=== PATIENT | female | born 1950 | race Caucasian/White ===

== ENCOUNTER 2016-04-28 10:07 | Emergency (ER) | payer MEDICARE, MEDICAID ==
[~2016-04-28] VITALS: Ht 157.5 cm; Wt 75.5 kg
[~2016-04-28 10:07] MED LIST: DIPH177. TP
[2016-04-28 10:14] VITALS: Ht 157.5 cm; Wt 75.5 kg
[2016-04-28] MEDS ORDERED: ONDANSETRON (ODT) 4 MG TAB ODT STA (11:19)
--- NOTE | 2016-04-28 11:25 | ERD ---
ER Documentation Chief Complaint Date/Time DATE: 04/28/16 TIME: 11:21 Chief Complaint fell in shower l knee pain HPI This patient is a 65-year-old female with no significant medical history presenting to the emergency department for left knee and left leg pain which began approximately 1 week ago when she twisted her knee in the shower. Currently she states her pain is a 7 out of 10 on the pain scale and it is aching in nature. The patient did not have any fall or other traumatic events. The patient has taken NSAIDs at home with mild relief of her pain. The patient denies any fevers, chills, nausea, vomiting, diarrhea or other symptoms at this time. ROS All systems reviewed and are negative except as per history of present illness. Medications Home Meds Active Scripts Naproxen* (Naprosyn*) 500 Mg Tablet, 500 MG PO BID Y for PAIN AND/OR INFLAMMATION, #30 TAB Prov:TAD MAGALLON PA-C 04/28/16 Hydrocodone/Acetaminophen ([place] 5-325 Tablet) 1 Each Tablet, 1 EACH PO Q8, #10 TAB Prov:TAD MAGALLON PA-C 04/28/16 Diphenhydramin/Benzethon/Zinc (Calagel Gel) 177.44 Ml Gel..ml., 1 APPLIC TP QID Y for ITCHING, #1 Prov:PAUL TAVERA NP 10/23/15 Allergies Allergies: Coded Allergies: No Known Allergy (Unverified , 10/23/15) PMhx/Soc History of Surgery: Yes (REMOVAL OF BRAIN TUMOR; HYSTERRECTOMY; JAW SURGERY) Anesthesia Reaction: No Hx Neurological Disorder: No Hx Respiratory Disorders: No Hx Cardiac Disorders: No Hx Psychiatric Problems: No Hx Miscellaneous Medical Probl: Yes (ECZEMA) Hx Alcohol Use: No Hx Substance Use: No Hx Tobacco Use: No FmHx Family History: coronary disease, diabetes Physical Exam Vitals Vital Signs Date Time Temp Pulse Resp B/P Pulse Ox O2 Delivery O2 Flow Rate FiO2 04/28/16 10:14 97.9 74 18 133/74 100 Physical Exam INITIAL VITAL SIGNS: Reviewed by me. GENERAL: Alert and interactive. No acute distress. HEAD: Head is normocephalic and atraumatic. EYES: EOMI. No scleral icterus. No conjunctival injection. ENT: Moist mucosa. NECK: Supple. Full range of motion. RESPIRATORY: Normal respiratory effort. Clear breath sounds bilaterally. No wheezing, rales, or rhonchi. CV: Regular rate and rhythm. Normal S1 S2. No S3 or S4. No murmurs. ABDOMEN: Soft, non-distended, non-tender. No guarding. No rebound. No masses. EXTREMITIES: There is mild swelling to the left knee with limited range of motion secondary to pain. There is tenderness to palpation of the lateral joint line. There is no ecchymosis. There is tenderness to palpation to the left mid femur. Unable to range of motion the entire extremity at this time secondary to pain. SKIN: Warm and dry. NEUROLOGIC: Alert and oriented x 4. Speech is normal. Moves all extremities equally. No motor or sensory deficits noted. Results 24 hrs Current Medications Medications (Trade) Dose Ordered Sig/Buddy Route PRN Reason Start Time Stop Time Status Last Admin Dose Admin Acetaminophen/ Hydrocodone Bitart ([place] (5/325)) 1 tab ONCE ONCE PO 04/28/16 11:30 04/28/16 11:31 DC 04/28/16 11:25 Ondansetron HCl (Zofran Odt) 4 mg ONCE STAT ODT 04/28/16 11:19 04/28/16 11:21 DC 04/28/16 11:25 Ketorolac Tromethamine (Toradol) 30 mg ONCE STAT IM 04/28/16 12:57 04/28/16 12:59 DC 04/28/16 13:12 Procedures/MDM EMERGENCY DEPARTMENT COURSE / MEDICAL DECISION MAKING: This is a 65-year-old female who comes to the emergency room secondary to complaints of left knee and left femur and left hip pain. The patient was given p.o. [place] in the department. On re-evaluation, the patient was feeling improved. Radiology: PROCEDURE: XR Left Femur CLINICAL INDICATION: Pain TECHNIQUE: AP and lateral radiographs were submitted. COMPARISON: None FINDINGS: Osseous structures: The osseous elements appear rarefied but intact. Joint spaces: Moderately severe osteoarthritic changes seen about the patellar femoral and femoral tibial joint spaces with mild degenerative change seen about the hip joint. No joint effusion is evident. Soft tissues: appear unremarkable. IMPRESSION: 1. Osteoporosis with the osseous elements intact. 2. Moderately severe osteoarthritic change seen about the patellar femoral and medial femoral tibial joint spaces with mild degenerative change seen about the hip joint. PROCEDURE: XR Left Hip CLINICAL INDICATION: Pain TECHNIQUE: 2 views were submitted COMPARISON: None FINDINGS: Osseous structures: appear well mineralized and intact with no fracture or destructive process identified. Joint spaces: The hip joint is well maintained there is no distension of the joint capsule. Soft tissues: appear unremarkable. IMPRESSION: Unremarkable left hip. PROCEDURE: CR Left Knee CLINICAL INDICATION: Pain TECHNIQUE: An AP, lateral, and an oblique radiographs were submitted. COMPARISON: None FINDINGS: Osseous Structures: The osseous elements appear well mineralized and intact. Joint Spaces: There is narrowing of the medial femoral tibial and patellar femoral joint space with moderately severe osteoarthritic change. No joint effusion is evident. Soft Tissues: An ovoid calcification is seen in the superficial soft tissues ventral to the anterior tibial tuberosity. IMPRESSION: 1. Moderately severe osteoarthritic change. 2. Ovoid calcification seen in the ventral soft tissues at the proximal lower leg. The primary diagnosis is knee pain. Secondary diagnosis is knee injury. I have low suspicion for hip fracture, femur fracture, knee fracture, hip dislocation, and others at this time. Discharge: I have discussed the lab results and diagnostic findings with the patient and answered any questions or concerns. The patient was discharged with a prescription for [place] and naproxen. The patient was advised to followup with their PMD in 1-2 days and to return to the Emergency Department if there are any new or worsening symptoms. The patient was advised she may need MRI imaging to further assess the structures of the knee. The patient understood and agreed with the diagnosis, treatment and plan. The patient is stable for discharge at this time. Departure Diagnosis: Primary Impression: Knee pain Additional Impression: Knee injury Condition: Stable Patient Instructions: Knee Pain, Uncertain Cause, Knee Sprain Additional Instructions: Follow-up with your primary care physician within 1 week. Return to the emergency department immediately should you have any new or worsening symptoms, uncontrolled fevers, or other unexplained symptoms. Take all medications as directed. TAD MAGALLON PA-C Apr 28, 2016 11:25
[2016-04-28] MEDS ORDERED: HYDROCODONE/APAP (5/325) TAB PO ONE (11:30)
--- NOTE | 2016-04-28 12:33 | RADRPT ---
PROCEDURE: XR Left Hip CLINICAL INDICATION: Pain TECHNIQUE: 2 views were submitted COMPARISON: None FINDINGS: Osseous structures: appear well mineralized and intact with no fracture or destructive process iden tified. Joint spaces: The hip joint is well maintained there is no distension of the joint capsule. Soft tissues: appear unremarkable. IMPRESSION: Unremarkable left hip. Physician Moy Date Time Electronically viewed and signed by Mayra Paz Physician on 04/28/2016 12:32 RH/
--- NOTE | 2016-04-28 12:34 | RADRPT ---
PROCEDURE: CR Left Knee CLINICAL INDICATION: Pain TECHNIQUE: An AP, lateral, and an oblique radiographs were submitted. COMPARISON: None FINDINGS: Osseous Structures: The osseous elements appear well mineralized and intact. Joint Spaces: There is narrowing of the medial femoral tibial and patellar femoral joint space with moderately severe osteoarthritic change. No joint effusion is evident. Soft Tissues: An ovoid calcification is seen in the superficial soft tissues ventral to the anterio r tibial tuberosity. IMPRESSION: 1. Moderately severe osteoarthritic change. 2. Ovoid calcification seen in the ventral soft tissues at the proximal lower leg. Physician Moy Date Time Electronically viewed and signed by Physician Moy on 04/28/2016 12:34 /
[2016-04-28] MEDS ORDERED: KETOROLAC 30 MG INJ IM STA (12:57)
--- NOTE | 2016-04-28 13:09 | RADRPT ---
PROCEDURE: XR Left Femur CLINICAL INDICATION: Pain TECHNIQUE: AP and lateral radiographs were submitted. COMPARISON: None FINDINGS: Osseous structures: The osseous elements appear rarefied but intact. Joint spaces: Moderately severe osteoarthritic changes seen about the patellar femoral and femoral t ibial joint spaces with mild degenerative change seen about the hip joint. No joint effusion is link dent. Soft tissues: appear unremarkable. IMPRESSION: 1. Osteoporosis with the osseous elements intact. 2. Moderately severe osteoarthritic change seen about the patellar femoral and medial femoral tibia l joint spaces with mild degenerative change seen about the hip joint. Physician Moy Date Time Electronically viewed and signed by Physician Moy on 04/28/2016 13:08 /
[2016-04-28] MEDS ORDERED: HYDR-906 PO (13:38)
[2016-04-28] MEDS ORDERED: NAPR-260 PO (13:38)
== END 2016-04-28 13:52 | disposition home or self-care (01) ==
LOC: FTE 10:07
DX: S89.92XA Unspecified injury of left lower leg, initial encounter (principal); W18.2XXA Fall in (into) shower or empty bathtub, initial encounter; Y92.9 Unspecified place or not applicable
CPT/HCPCS: 73510; 73550; 73562; 96372; 99284; J1885

== ENCOUNTER 2018-08-18 17:53 | Emergency (ER) | payer MEDICARE, OTHER ==
[~2018-08-18] VITALS: Ht 160 cm; Wt 82.7 kg
[~2018-08-18 17:53] MED LIST changes: +HYDR-4011 PO; +NAPR-985 PO
[2018-08-18 17:58] VITALS: Ht 160 cm; Wt 82.7 kg
[2018-08-18] MEDS ORDERED: CEPH-443 PO (19:24)
[2018-08-18] MEDS ORDERED: PHEN-537 PO (19:24)
[2018-08-18 19:52] VITALS: BP 138/72; PULSE 70; RESP 16
--- NOTE | 2018-08-18 20:40 | ERD ---
ER Documentation Chief Complaint Chief Complaint possible urine pain and frequency x 5days HPI 68-year-old female with no significant past medical history presenting to the emergency department complaining of intermittent dysuria for the past 5 days. Symptoms are intermittent and worsening. She has history of similar symptoms in the past. She denies any hematuria, fevers, flank pain, back pain, abdominal pain, or other symptoms at this time. ROS All systems reviewed and are negative except as per history of present illness. Medications Home Meds Active Scripts Phenazopyridine Hcl* (Pyridium*) 100 Mg Tab, 100 MG PO TID, #6 TAB Prov:TAD MAGALLON PA-C 08/18/18 Cephalexin* (Keflex*) 500 Mg Capsule, 500 MG PO TID for 7 Days, CAP Prov:TAD MAGALLON PA-C 08/18/18 Naproxen* (Naprosyn*) 500 Mg Tablet, 500 MG PO BID PRN for PAIN AND/OR IN FLAMMATION, #30 TAB Prov:TAD MAGALLON PA-C 04/28/16 Hydrocodone/Acetaminophen ([place] 5-325 Tablet) 1 Each Tablet, 1 EACH PO Q8, #10 TAB Prov:TAD MAGALLON PA-C 04/28/16 Diphenhydramin/Benzethon/Zinc (Calagel Gel) 177.44 Ml Gel..ml., 1 APPLIC TP QID PRN for ITCHING, #1 Prov:PAUL TAVERA RIBBON WEAVER 10/23/15 Allergies Allergies: Coded Allergies: No Known Allergy (Unverified , 10/23/15) PMhx/Soc History of Surgery: Yes (REMOVAL OF BRAIN TUMOR; HYSTERRECTOMY; JAW SURGERY) Anesthesia Reaction: No Hx Neurological Disorder: No Hx Respiratory Disorders: No Hx Cardiac Disorders: No Hx Psychiatric Problems: No Hx Miscellaneous Medical Probl: Yes (ECZEMA) Hx Alcohol Use: No Hx Substance Use: No Hx Tobacco Use: No Smoking Status: Never smoker FmHx Family History: No diabetes Physical Exam Vitals Vital Signs Date Temp Pulse Resp B/P (MAP) Pulse Ox O2 O2 Flow FiO2 Time Delivery Rate 08/18/18 98.9 70 16 138/72 97 Room Air 19:52 (94) 08/18/18 99.1 92 18 141/72 95 17:58 (95) Physical Exam Const: No acute distress Head: Atraumatic Eyes: Normal Conjunctiva ENT: Normal External Ears, Nose and Mouth. Neck: Full range of motion. No meningismus. Resp: Clear to auscultation bilaterally Cardio: Regular rate and rhythm, no murmurs Abd: Soft, non tender, non distended. Normal bowel sounds Skin: No petechiae or rashes Back: No midline or flank tenderness. No CVA tenderness. Ext: No cyanosis, or edema Neur: Awake and alert Psych: Normal Mood and Affect Results 24 hrs Laboratory Tests Test 08/18/18 19:00 Bedside Urine pH (LAB) 5.5 Bedside Urine Protein (LAB) 1+ Bedside Urine Glucose (UA) Negative Bedside Urine Ketones (LAB) Negative Bedside Urine Blood 2+ Bedside Urine Nitrite (LAB) Negative Bedside Urine Leukocyte Esterase (L 1+ Procedures/MDM 68-year-old female presented to the emergency department with signs and symptoms and urine dip findings most consistent with urinary tract infection. No evidence of pyonephritis, sepsis, or other emergencies. Patient is nontoxic and well-appearing and afebrile. She is appropriate for discharge and further outpatient management with prescriptions to treat her symptoms at home. She was in agreement with the diagnosis, plan, need for follow-up, return precautions. Patient's blood pressure was elevated (>120/80) but appears stable without evidence of hypertension emergency or urgency. The patient is to follow-up and pursue outpatient monitoring and therapy with their primary care physician within 1 week and return immediately if they have any new, worsening, or concerning symptoms. Disclaimer: Inadvertent spelling and grammatical errors are likely due to EHR/dictation software use and do not reflect on the overall quality of patient care. Also, please note that the electronic time recorded on this note does not necessarily reflect the actual time of the patient encounter. Departure Diagnosis: Primary Impression: UTI (urinary tract infection) Condition: Fair Patient Instructions: Understanding Urinary Tract Infections (UTIs) Referrals: COMM[facility] YOU HAVE RECEIVED A MEDICAL SCREENING EXAM AND THE RESULTS INDICATE THAT YOU DO NOT HAVE A CONDITION THAT REQUIRES URGENT TREATMENT IN THE EMERGENCY DEPARTMENT. FURTHER EVALUATION AND TREATMENT OF YOUR CONDITION CAN WAIT UNTIL YOU ARE SEEN IN YOUR DOCTORS OFFICE WITHIN THE NEXT 1-2 DAYS. IT IS YOUR RESPONSIBILITY TO MAKE AN APPOINTMENT FOR FOLOW-UP CARE. IF YOU HAVE A PRIMARY DOCTOR --you should call your primary doctor and schedule an appointment IF YOU DO NOT HAVE A PRIMARY DOCTOR YOU CAN CALL OUR PHYSICIAN REFERRAL HOTLINE AT IF YOU CAN NOT AFFORD TO SEE A PHYSICIAN YOU CAN CHOSE FROM THE FOLLOWING [facility] [address] [facility] [address] [facility] [address] [facility] [address] [facility] [address] [facility]. [facility]. [address] Additional Instructions: Call your primary care doctor TOMORROW for an appointment during the next 1-2 days.See the doctor sooner or return here if your condition worsens before your appointment time. TAD MAGALLON PA-C August 18, 2018 20:40
== END 2018-08-18 19:58 | disposition home or self-care (01) ==
LOC: FTE 17:53
DX: N39.0 Urinary tract infection, site not specified (principal)
CPT/HCPCS: 81003; 99283